=== PATIENT | female | born 1970 | race Caucasian/White ===

== ENCOUNTER 2017-12-30 21:58 | Emergency (ER) ==
[2017-12-30 22:13] VITALS: BP 171/82; TEMP 98; BMI 41.9
--- NOTE | 2017-12-30 22:31 | ED.PDOC ---
General ED Provider: Dr. DENISSE PEREZ Chief Complaint: Abscess Stated Complaint: Patient is a 47 year old female who comes to the ER with 2 abscesses to right axilla for few days. She states that she tried warm compresses at home, which went away. The one came back 4 days ago. It is now tender, red, swollen, and warm to touch. Time Seen by Physician: 22:44 Mode of Arrival: Walk-In Information Source: Patient Nursing and Triage Documentation Reviewed and Agree: Yes Reviewed sepsis parameters & appropriate labs ordered?: No System Inflammatory Response Syndrome: Not Applicable Sepsis Protocol: For patient's 13 years and over: Temp is 96.8 and below OR 101 and greater Pulse >90 BPM Resp >20/minute Acutely Altered Mental Status Are patient's symptoms suggestive of a new infection, such as: -Pneumonia -Skin, Soft Tissue -Endocarditis -UTI -Bone, Joint Infection -Implantable Device -Acute Abdominal Infection -Wound Infection -Meningitis -Blood Stream Catheter Infection -Unknown Skin Complaint Exam - Skin/Soft Tissue Complaint/Exam Onset/Duration: 4 days Symptoms Are: Still present Timing: Constant Initial Severity: Moderate Current Severity: Severe Location: Right armpit Character: Reports: Redness, Swelling, Raised, Painful Aggravating: Reports: Touch Associated Signs and Symptoms: Reports: Tenderness, Red streaks Related History: 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, Prior MRSA/VRE Recent Exposure to Others w/Similar Symptoms: No Skin Findings: Present: Erythema, Fluctuant mass Differential Diagnoses: Abscess, MRSA Review of Systems - Review Of Systems Constitutional: Reports: No symptoms Eyes: Reports: No symptoms Ears, Nose, Mouth, Throat: Reports: No symptoms Respiratory: Reports: No symptoms Cardiac: Reports: No symptoms GI: Reports: No symptoms : Reports: No symptoms Musculoskeletal: Reports: No symptoms Skin: Reports: Lesions, Lumps Neurological: Reports: Anxiety Endocrine: Reports: No symptoms Hematologic/Lymphatic: Reports: No symptoms All Other Systems: Reviewed and Negative Past Medical History - Past Medical History Endocrine: Reports: None Cardiovascular: Reports: Hypertension Respiratory: Reports: None Hematological: Reports: None Gastrointestinal: Reports: None Genitourinary: Reports: None Neuro/Psych: Reports: None Musculoskeletal: Reports: None Cancer: Reports: None Last Menstrual Period: PRESENTLY - Surgical History General Surgical History: Reports: Tubal ligation, Cholecystectomy, Other (i and D on the thigh for absesses, cervical surgery ) - Family History Family History: Reports: Unknown - Social History Smoking Status: Current every day smoker, Heavy tobacco smoker Hx Substance Use: No Alcohol Screening: None - Immunizations Tetanus Shot up to Date: Yes Physical Exam - Physical Exam Appearance: Ill-appearing, Obese Ill-appearing: Mild Pain Distress: Moderate Eyes: HOWIE Neck: Supple Respiratory: Airway patent, Breath sounds clear, Breath sounds equal, Respirations nonlabored Cardiovascular: RRR GI/: Soft, Nontender, No masses, Bowel sounds normal, No Organomegaly Musculoskeletal: Normal strength, ROM intact, No edema Skin: Warm, Dry Neurological: Sensation intact, Motor intact, Reflexes intact, Cranial nerves intact, Alert, Oriented Psychiatric: Anxious Critical Care Note - Critical Care Note Total Time (mins): 0 Comments: Mid to moderate tenderness but abscess areas not ready for I and D for another two to three days. Course - Course Orders, Labs, Meds: Orders Category Date Time Status Clindamycin HCl [Cleocin] MEDS 12/30/17 22:46 Discontinued 300 mg PO ONCE STA Medications Discontinued Medications Generic Name Dose Route Start Last Admin Trade Name Patricio PRN Reason Stop Dose Admin Clindamycin HCl 300 mg 12/30/17 22:46 12/30/17 23:03 Cleocin PO 12/30/17 22:47 300 mg ONCE STA Administration Vital Signs: Temp Pulse Resp BP Pulse Ox 12/30/17 21:58 98 F 89 20 171/82 H 95 Departure - Departure Time of Disposition: 22:44 Disposition: HOME SELF-CARE Discharge Problem: Abscess Instructions: Abscess (ED) Condition: Fair Pt referred to PMD for follow-up: Yes IPMP verified?: No Additional Instructions: Follow up with PCP or ER to have drainage of the abscess Take Tylenol as needed Use warm compress as needed tree to four times a day Prescriptions: Clindamycin HCl 300 mg PO TID #30 capsule Allergies/Adverse Reactions: Allergies Sulfa (Sulfonamide Antibiotics) Adverse Reaction (Verified 12/30/17 22:13) Hives Home Medications: Ambulatory Orders Gabapentin 300 mg PO TID 08/23/13 Lisinopril [Zestril] 20 mg PO DAILY 08/23/13 Metformin HCl 1,000 mg PO BID 08/23/13 Sitagliptin Phosphate [Januvia] 100 mg PO DAILY 08/23/13 Clindamycin HCl 300 mg PO TID #30 capsule 12/30/17 Disposition Discussed With: Patient, Family
[2017-12-30] MEDS ORDERED: CLEOCIN PO STA (22:46)
== END 2017-12-30 22:59 | disposition home or self-care (01) ==
LOC: ED 21:58
DX: L02.411 Cutaneous abscess of right axilla (principal); F17.210 Nicotine dependence, cigarettes, uncomplicated
CPT/HCPCS: 99283